=== PATIENT | female | born 1970 | race Two or more races ===

== ENCOUNTER → 2019-07-04 09:54 | Outpatient (CLI) | payer OTHER | END | disposition home or self-care (01) | LOC: LAB 09:54 | DX: N20.0 Calculus of kidney (principal) ==

== ENCOUNTER → 2019-07-04 | Outpatient (CLI) | payer OTHER | END | disposition home or self-care (01) | LOC: MRI 11:19 | DX: M50.20 Other cervical disc displacement, unspecified cervical region (principal) | CPT/HCPCS: 72156 ==

== ENCOUNTER 2019-08-07 14:26 | Outpatient (CLI) | payer OTHER | END 2019-08-07 14:45 | disposition home or self-care (01) | LOC: SONOGRAMA 14:26 | DX: M79.672 Pain in left foot (principal) ==